=== PATIENT | male | born 1995 | race Caucasian/White ===

== ENCOUNTER 2020-08-10 11:19 | Emergency (ER) | payer OTHER ==
[~2020-08-10] VITALS: Ht 167.6 cm; Wt 73.0 kg
[2020-08-10] MEDS ORDERED: LIDOCAINE HCL/PF 1% 10 MG/ML 5ML VIAL IJ ONE (12:00)
[2020-08-10] MEDS ORDERED: BACITRACIN ZINC OINT UDPKT TOP ONE (12:00)
[2020-08-10] MEDS ORDERED: IBUPROFEN 600MG TABLET PO ONE (12:15)
[2020-08-10] MEDS ORDERED: IBUP-2029 MT (12:49)
[2020-08-10 13:27] VITALS: BP 138/86
== END 2020-08-10 13:28 | disposition home or self-care (01) ==
LOC: ER 11:19
DX: S90.112A Contusion of left great toe without damage to nail, initial encounter (principal); W50.0XXA Accidental hit or strike by another person, initial encounter; Y93.89 Activity, other specified; Y92.89 Other specified places as the place of occurrence of the external cause; Y99.8 Other external cause status
CPT/HCPCS: 99284; J3490; Z7610

== ENCOUNTER 2020-08-21 10:58 | Emergency (ER) | payer OTHER ==
[~2020-08-21] VITALS: Ht 167.6 cm; Wt 75.0 kg
[~2020-08-21 10:58] MED LIST: IBUP-2029 MT
[2020-08-21] MEDS ORDERED: IBUP-2029 MT (11:44)
[2020-08-21] MEDS ORDERED: BUDE6.9H INH (11:44)
[2020-08-21] MEDS ORDERED: IBUPROFEN 600MG TABLET PO ONE (12:00)
[2020-08-21 12:11] VITALS: BP 122/75
== END 2020-08-21 12:12 | disposition home or self-care (01) ==
LOC: ER 11:03
DX: S90.112A Contusion of left great toe without damage to nail, initial encounter (principal); J45.909 Unspecified asthma, uncomplicated; W22.8XXA Striking against or struck by other objects, initial encounter; Y93.9 Activity, unspecified; Y92.89 Other specified places as the place of occurrence of the external cause
CPT/HCPCS: 99282

== ENCOUNTER 2020-09-11 08:45 | Emergency (ER) | payer OTHER ==
[~2020-09-11] VITALS: Ht 167.6 cm; Wt 73.0 kg
[~2020-09-11 08:45] MED LIST changes: +BUDE6.9H INH
[2020-09-11] MEDS ORDERED: METHYLPREDNISOLONE SOD SUCC 125 MG/2 ML VIAL IM STA (09:06)
[2020-09-11] MEDS ORDERED: IPRATROPIUM BROMIDE (0.02%) 0.5MG/2.5ML NEB HHN STA (09:06)
[2020-09-11] MEDS ORDERED: ALBUTEROL (0.083%) 2.5MG/3ML NEB HHN STA (09:06)
[2020-09-11] MEDS ORDERED: ALBU18HF2 IH (10:08)
[2020-09-11] MEDS ORDERED: P20 PO (10:08)
[2020-09-11] MEDS ORDERED: BUDE6.9H INH (10:08)
[2020-09-11 10:29] VITALS: BP 112/80
== END 2020-09-11 10:30 | disposition home or self-care (01) ==
LOC: ER 09:09
DX: J45.901 Unspecified asthma with (acute) exacerbation (principal)
CPT/HCPCS: 94640; 96372; 99283; J2930; Z7610